=== PATIENT | female | born 1990 | race Caucasian/White ===

== ENCOUNTER 2016-12-30 09:08 | Inpatient (IN) | payer OTHER ==
[~2016-12-30] VITALS: Ht 154.9 cm; Wt 75.5 kg
[~2016-12-30 09:08] MED LIST: AMOXICILLIN500 MG PO; GUMMY DINOS1 EACH PO; HYCODAN SYRUP480 ML PO; INDERAL20 MG PO; LABETALOL HCL200 MG PO; LABETALOL HCL300 MG PO; LISINOPRIL10 MG PO; MACROBID100 MG PO; METHIMAZOLE10 MG PO; MOTRIN600 MG PO; NIFEDIPINE ER60 MG PO; NO HOME MEDS; PROPRANOLOL HCL20 MG PO; SILVADENE20 GM TP; TAPAZOLE10 MG PO
[2016-12-30 10:01] LABS: HEMATOCRIT 38.6 % (36.0-46.0); MCHC 34.5 G/DL (30.0-36.0); MCV 75.5 FL (83-99); MEAN PLAT.VOLUME 10.7 uM^3 (9.5-12.4); PLATELET COUNT 296 K/uL (156-360); RBC DIS.WIDTH-CV 13.4 % (11.8-14.6); RBC DIS.WIDTH-SD 35.5 % (39-53); RED BLOOD COUNT 5.11 M/uL (3.80-5.20)
[2016-12-30 10:11] LABS: CHLORIDE 103 mEq/L (99-109); POTASSIUM 3.8 mEq/L (3.7-5.4); SODIUM 137 mEq/L (136-147)
[2016-12-30 10:13] LABS: GLUCOSE 120 mg/dL (70-99)
[2016-12-30 10:15] LABS: ANION GAP 10 MEQ/L (2-14); TOTAL BILIRUBIN 1.8 mg/dL (0.0-1.0)
[2016-12-30 10:17] LABS: ALKALINE PHOSPHATASE 139 IU/L (3-129); GFR ESTIMATE (CALCULATED) > 59 mL/min/
[2016-12-30 10:18] LABS: UREA NITROGEN (BUN) 11 mg/dL (9-23)
[2016-12-30 10:19] LABS: DIRECT BILIRUBIN 0.7 mg/dL (0.0-0.3)
[2016-12-30 10:20] LABS: LIPASE 11 U/L (1.0-51.0)
[2016-12-30 10:26] LABS: QUANTITATIVE HCG < 4.0 MIU/ML
[2016-12-30 11:17] LABS: ADD MIUA? YES; BILIRUBIN NEGATIVE; BLOOD SMALL; COLOR AMBER ((YELLOW)); GLUCOSE (STRIP) NEGATIVE; KETONES NEGATIVE; LEUKOCYTES LARGE; NITRITE POSITIVE; PROTEIN (STRIP) 100; SPECIFIC GRAVITY 1.018 (1.000-1.030); UROBILINOGEN 0.2 MG/DL (0.2-1.0)
[2016-12-30 11:47] LABS: BACTERIA 3+ /HPF; EPITHELIAL CELLS 2+ /HPF; MUCUS 1+ /LPF; UCUL ADDED? YES; WHITE BLOOD CELLS TNTC /HPF (0-5); WHITE BLOOD CELLS CLUMP MOD /HPF (0-5)
[2016-12-30] MEDS ORDERED: CIPRO500 MG PO (12:00)
[2016-12-30] MEDS ORDERED: ZOFRAN4 MG PO (12:00)
[2016-12-30] MEDS ORDERED: MOTRIN600 MG PO (14:49)
[2016-12-30 18:46] VITALS: BP 190/106
[2016-12-30 19:00] VITALS: BP 153/98
[2016-12-30 20:00] VITALS: BP 147/81
[2016-12-30 21:00] VITALS: BP 140/64
[2016-12-30 21:00] LABS: METH RESISTANT S AUREUS PCR NEGATIVE (NEGATIVE)
[2016-12-30 21:02] LABS: PROBE CHECK PASS; SPECIMEN PROCESSING CONTROL PASS
[2016-12-30 22:00] VITALS: BP 147/70
[2016-12-30 23:00] VITALS: BP 148/66
[2016-12-31] VITALS (25 sets, daily range): BP systolic 127–183; BP diastolic 71–103
[2016-12-31 06:27] LABS: ANION GAP 10 MEQ/L (2-14); CHLORIDE 107 MEQ/L (99-109); GFR ESTIMATE (CALCULATED) > 59 mL/min/; GLUCOSE 135 mg/dL (70-99); POTASSIUM 3.3 MEQ/L (3.7-5.4); SAMPLE HEMOLYSIS CHECK 0; SAMPLE ICTERIC CHECK 0; SAMPLE LIPEMIA CHECK 0; SODIUM 139 MEQ/L (136-147); UREA NITROGEN (BUN) 7 mg/dL (9-23)
[2016-12-31 06:43] LABS: HEMATOCRIT 31.2 % (36.0-46.0); MCH 25.9 PG (29.0-34.0); MCHC 33.7 G/DL (30.0-36.0); RBC DIS.WIDTH-CV 13.3 % (11.8-14.6); RBC DIS.WIDTH-SD 37.5 % (39-53)
[2016-12-31 06:44] LABS: RED BLOOD COUNT 4.05 M/uL (3.80-5.20); WHITE BLOOD COUNT 8.3 K/uL (4.1-10.2)
[2016-12-31 08:13] LABS: MEAN PLAT.VOLUME 10.6 uM^3 (9.5-12.4)
[2016-12-31 08:35] LABS: AMPHETAMINES QUANT VALUE 0 NG/ML; BARBITUATES QUANT VALUE 0 NG/ML; BENZODIAZEPINES QUANT VALUE 0 NG/ML; BENZODIAZEPINES, URINE SCREEN Negative (200 ng/mL); OPIATES QUANTITATIVE VALUE 0 NG/ML; PHENCYCLIDINE QUANT VALUE 0 NG/ML
[2016-12-31 12:53] LABS: PLATELET COUNT 187 K/uL (156-360)
[2017-01-01] VITALS (22 sets, daily range): BP systolic 0–180; BP diastolic 0–100
[2017-01-01 05:34] LABS: HEMATOCRIT 29.2 % (36.0-46.0); MCH 25.9 PG (29.0-34.0); MCHC 33.6 G/DL (30.0-36.0); MEAN PLAT.VOLUME 10.6 uM^3 (9.5-12.4); PLATELET COUNT 172 K/uL (156-360); RBC DIS.WIDTH-CV 13.4 % (11.8-14.6); RBC DIS.WIDTH-SD 38.1 % (39-53); RED BLOOD COUNT 3.79 M/uL (3.80-5.20); WHITE BLOOD COUNT 4.4 K/uL (4.1-10.2)
[2017-01-01 06:19] LABS: ALKALINE PHOSPHATASE 77 IU/L (3-129); ANION GAP 10 MEQ/L (2-14); CHLORIDE 108 MEQ/L (99-109); DIRECT BILIRUBIN 0.2 mg/dL (0.0-0.3); GFR ESTIMATE (CALCULATED) > 59 mL/min/; MAGNESIUM 1.6 mg/dl (1.3-2.7); POTASSIUM 3.3 MEQ/L (3.7-5.4); SAMPLE HEMOLYSIS CHECK 0; SAMPLE ICTERIC CHECK 0; SAMPLE LIPEMIA CHECK 0; SODIUM 139 MEQ/L (136-147); TOTAL BILIRUBIN 0.6 MG/DL (0.0-1.0); UREA NITROGEN (BUN) 7 mg/dL (9-23)
[2017-01-01 06:22] LABS: GLUCOSE 100 mg/dL (70-99)
[2017-01-01 13:22] LABS: C DIFF TOXIN NEGATIVE (NEGATIVE); SPECIMEN PROCESSING CONTROL PASS
[2017-01-01 13:23] LABS: PROBE CHECK PASS
[2017-01-01] MEDS ORDERED: CIPRO500 MG PO (14:57)
[2017-01-01] MEDS ORDERED: LABETALOL HCL200 MG PO (14:59)
[2017-01-01] MEDS ORDERED: TAPAZOLE10 MG PO (15:00)
== END 2017-01-01 15:54 | disposition home or self-care (01) | DRG 644 ==
LOC: EME 09:08 → EDOF 15:41 → 4WEST 15:41 → EDOF 15:41 → 4WEST 18:18
PROVIDERS: Emergency Medicine; Internal Medicine; Internal Medicine Critical Care Medicine; Internal Medicine Pulmonary Disease
DX: E05.91 Thyrotoxicosis, unspecified with thyrotoxic crisis or storm (principal); N12 Tubulo-interstitial nephritis, not specified as acute or chronic; I47.2 Ventricular tachycardia; I16.0 Hypertensive urgency; N30.90 Cystitis, unspecified without hematuria; R50.9 Fever, unspecified; R19.7 Diarrhea, unspecified; E03.9 Hypothyroidism, unspecified; I10 Essential (primary) hypertension; F17.200 Nicotine dependence, unspecified, uncomplicated; Z91.14 Patient's other noncompliance with medication regimen; F12.90 Cannabis use, unspecified, uncomplicated
CPT/HCPCS: 74176; 80048; 80076; 80306 90; 81003; 82040; 83690; 83735; 84100; 84439; 84443; 84702; 85027; 87077; 87086; 87186; 87493; 87641; 99281; 99285; J0696; J0744; J1720; J1800; J1885; J2270; J2405; J7030; J7050; J7120